=== PATIENT | male | born 1940 | race American Indian/Alaskan Native ===

== ENCOUNTER 2018-07-16 11:45 | Day surgery (SDC) | payer MEDICARE, OTHER ==
[2018-07-16] MEDS ORDERED: NACL 0.9% 1000 ML 1,000 ML IV SCH (14:00)
[2018-07-16] MEDS ORDERED: ANCEF/STERILE WATER 2 GM/20 ML IV NR (14:00)
[2018-07-16 14:30] LABS: Basophils # (Auto) 0.1 K/mm3 (0.0-0.1); Basophils % (Auto) 1.2 % (0.0-1.8); Eosinophils # (Auto) 0.1 K/mm3 (0.0-0.4); Eosinophils % (Auto) 1.4 % (0.0-4.3); Hematocrit 35.2 % (35.5-45.6); Lymphocytes # (Auto) 0.8 K/mm3 (1.2-5.4); Lymphocytes % (Auto) 13.3 % (13.4-35.0); Mean Corpuscular HGB Conc 31 % (32-34); Mean Corpuscular Volume 71 fl (84-94); Monocytes # (Auto) 0.4 K/mm3 (0.0-0.8); Monocytes % (Auto) 7.1 % (0.0-7.3); Platelet Count 244 K/mm3 (140-440); Red Blood Count 4.94 M/mm3 (3.65-5.03); Red Cell Distribution Width 13.7 % (13.2-15.2)
[2018-07-16 14:48] LABS: BUN/Creatinine Ratio 19; Blood Urea Nitrogen 19 mg/dL (9-20); Calcium 8.9 mg/dL (8.4-10.2); Hemolysis Index 12
[2018-07-16] MEDS ORDERED: SUBLIMAZE ONE ×2 (16:00→16:14)
[2018-07-16] MEDS ORDERED: ZOFRAN ONE (16:00)
[2018-07-16] MEDS ORDERED: DIPRIVAN 10 MG/ML IV ONE (16:00)
[2018-07-16] MEDS ORDERED: XYLOCAINE MPF 2% ONE (16:00)
[2018-07-16] MEDS ORDERED: WATER FOR IRRIG STERILE IR ONE ×2 (16:15→16:49)
--- NOTE | 2018-07-16 16:34 | Short Stay Summary ---
Short Stay Documentation Date of service: 07/16/18 - History H&P: obtained from office - Allergies and Medications Current Medications: Allergies levofloxacin [From Levaquin] Allergy (Verified 07/15/18 15:00) Vomiting sulfamethoxazole [From Bactrim] Adverse Reaction (Verified 07/16/18 13:44) Unknown PT STATES HIS PHARMACIST TOLD HIM NOT TO TAKE BACTRIM THAT IT COULD INTERACT WITH ONE OF HIS HEART/BP MEDS trimethoprim [From Bactrim] Adverse Reaction (Verified 07/16/18 13:43) Unknown Home Medications Medication Instructions Recorded Confirmed Last Taken Type Acetaminophen [Tylenol Extra 500 mg PO PRN PRN 07/15/18 07/15/18 Unknown History Strength] Alfuzosin HCl [Alfuzosin HCl ER] 10 mg PO DAILY 07/15/18 07/15/18 07/15/18 History Amlodipine Bes/Olmesartan Med 1 each PO DAILY 07/15/18 07/15/18 07/16/18 08:30 History [Amlodipine-Olmesartan 10-40 mg] Cimetidine [Tagamet Hb] 200 mg PO PRN PRN 07/15/18 07/15/18 07/15/18 History Finasteride [Proscar] 5 mg PO DAILY 07/15/18 07/15/18 07/16/18 08:30 History Metoprolol [Lopressor] 25 mg PO DAILY 07/15/18 07/15/18 07/16/18 08:30 History Tolterodine (Nf) [Detrol LA] 4 mg PO QDAY 07/15/18 07/15/18 07/15/18 History hydroCHLOROthiazide [HCTZ] 25 mg PO QDAY 07/15/18 07/15/18 07/15/18 History traMADol [Ultram] 50 mg PO Q4HR PRN 07/15/18 07/15/18 07/15/18 History Active Medications Cefazolin Sodium (Ancef/Sterile Water 2 Gm/20 Ml) 2 gm IV PREOP NR Stop: 07/16/18 23:59 Sodium Chloride (Nacl 0.9% 1000 Ml) 1,000 mls @ 42 mls/hr IV DIRECT CAIN Last Admin: 07/16/18 14:10 Dose: 42 mls/hr Documented by: - Brief post op/procedure progress note Date of procedure: 07/16/18 Pre-op diagnosis: bladder tumor Post-op diagnosis: same Procedure: cysto, rt rpg, TURBT - left side wall (mod) Anesthesia: SAURABHA Surgeon: SIMONE VARGAS Estimated blood loss: minimal Pathology: list (bladder tumor) Condition: stable - Hospital course Hospital course: macrobid & norco on chart - Disposition Condition at discharge: Stable Disposition: DC-01 TO HOME OR SELFCARE Short Stay Discharge Plan Follow up with: EMIL SEALS MD [Primary Care Provider] - 7 Days
[2018-07-16] MEDS ORDERED: SORBITOL-MANNITOL IRRIG IR ONE (16:49)
[2018-07-16] MEDS ORDERED: DEMEROL ONE (17:10)
[2018-07-16] MEDS ORDERED: DEMEROL IV PRN (17:11)
[2018-07-16 17:18] VITALS: BP 150/81
--- NOTE | 2018-07-16 18:27 | Operative Report ---
PREOPERATIVE DIAGNOSIS: Bladder tumor. POSTOPERATIVE DIAGNOSES: Bladder tumor. PROCEDURES: Cystoscopy, right retrograde pyelogram, transurethral resection of moderate size left bladder tumor. SURGEON: Primitivo Mendez MD ANESTHESIA: General. ESTIMATED BLOOD LOSS: Minimal. FLUIDS: Crystalloid. COMPLICATIONS: No complications. INDICATIONS: This patient is a 78-year-old gentleman seen in our office for gross hematuria. He has actually been followed for several years for erectile dysfunction and hypogonadism, had an episode of gross hematuria. CT of abdomen and pelvis revealed a bladder mass and some degenerative changes in his spine. Office cystoscopy could see an area of irritation. 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 He presents now for further endoscopic evaluation. DESCRIPTION OF PROCEDURE: The patient was taken to the operative suite, placed in a supine position. After adequate general anesthesia, placed in a dorsal lithotomy position, prepped and draped in a sterile fashion. Pancystourethroscopy was performed with a 22-Samoan Storz cystoscope, no urethral abnormalities. His prostate did display some moderate trilobar obstruction, obvious bladder tumor could be on the left lateral wall also obscuring the left ureteral orifice. Right retrograde pyelogram was obtained with an 8-Samoan Nic catheter and 8 mL of contrast. No filling defects or obstruction. No other tumors or stones were noted. Using a 27-Samoan resectoscope and loop with a cutting and coag on 120 and 60, transurethral resection of the papillary tumor was performed. There was a small stalk, although he also had some trabeculation making it difficult to see the left ureteral orifice. The tumor was removed completely. Gentle cauterization due to the ureteral orifice was not visualized on the left. The Ellik evacuators were used to remove all the chips. Adequate hemostasis achieved. Rectal exam was benign. He was extubated and taken to recovery room. He will go home on [employer] and [employer]. JOB# [id number] [facility]
--- NOTE | 2018-07-17 07:45 | Fluoroscopy Report ---
FLUOROSCOPY RETROGRADE UROGRAPHY: HISTORY: Bladder mass, retention of urine. FINDINGS: Fluoroscopy was provided by radiology during retrograde urography by the urologist. 2 fluoroscopic images were captured. The right retrograde pyelogram was normal. Per the operative notes, the urologist was unable to identify the orifice to the left ureter due to a bladder mass. TURBT it was performed on a moderate sized bladder tumor. Please correlate with the operative notes as needed. IMPRESSION: Normal right retrograde pyelogram. Bladder mass. See above.
== END 2018-07-16 11:46 | disposition home or self-care (01) ==
LOC: OR 11:45
PROVIDERS: ATTEND Urology
DX: C67.9 Malignant neoplasm of bladder, unspecified (principal); N32.89 Other specified disorders of bladder; R31.0 Gross hematuria; I10 Essential (primary) hypertension; K21.9 Gastro-esophageal reflux disease without esophagitis; E11.51 Type 2 diabetes mellitus with diabetic peripheral angiopathy without gangrene; N40.0 Benign prostatic hyperplasia without lower urinary tract symptoms; D64.9 Anemia, unspecified; G47.33 Obstructive sleep apnea (adult) (pediatric); Z79.899 Other long term (current) drug therapy; Z79.01 Long term (current) use of anticoagulants; Z88.2 Allergy status to sulfonamides; Z88.1 Allergy status to other antibiotic agents; Z95.0 Presence of cardiac pacemaker; Z87.891 Personal history of nicotine dependence; Z98.890 Other specified postprocedural states
CPT/HCPCS: 36415; 52240; 74420; 80048; 82962; 85025; 88305; A4217; C1758; J0690; J2175; J2405; J2704; J3010; J7030; Q9967

== ENCOUNTER 2019-07-27 05:46 | Day surgery (SDC) | payer MEDICARE, OTHER ==
[2019-07-27] MEDS ORDERED: ceFAZolin/STERILE WATER 2 GM/20 ML SYRINGE IV NR (07:00)
[2019-07-27] MEDS ORDERED: BACTERIOSTATIC SODIUM CHLORIDE 0.9% 30 ML VIAL INFILTRATI ONE (07:03)
--- NOTE | 2019-07-27 07:27 | Anesthesia Day of Surgery ---
Anesthesia Day of Surgery - Day of Surgery Patient Examined: Yes Patient H&P Reviewed: Yes Patient is NPO: Yes Beta Blockers: Yes
[2019-07-27] MEDS ORDERED: ONDANSETRON 4 MG/2 ML INJ IV PRN (07:28)
[2019-07-27] MEDS ORDERED: fentaNYL 100 MCG/2 ML INJ IV PRN (07:28)
--- NOTE | 2019-07-27 07:34 | Anesthesia Consultation ---
Anesthesia Consult and Med Hx Date of service: 07/27/19 - Airway Anesthetic Teeth Evaluation: Partials (upper and lower) ROM Head & Neck: Adequate Mental/Hyoid Distance: Adequate Mallampati Class: Class III Intubation Access Assessment: Possibly Difficult - Pre-Operative Health Status ASA Pre-Surgery Classification: ASA3 Proposed Anesthetic Plan: General - Pulmonary Hx Smoking: Yes (STOPEED X 30 YRS) Hx Sleep Apnea: Yes (DX SLEEP APNEA WITH CPAP USE.) - Cardiovascular System Hx Hypertension: Yes (X 20 YRS) Hx Pacemaker: Yes (2012, paced at the rate of 60 ) Hx Peripheral Vascular Disease: Yes (LEGS) - Central Nervous System Hx Back Pain: Yes - Endocrine Hx Non-Insulin Dependent Diabetes: Yes - Hematic Hx Anemia: Yes Hx Sickle Cell Disease: No (SC TRAIT ONLY) - Other Systems Hx Cancer: Yes (bladder CA 2017, followed by chemo)
[2019-07-27] MEDS ORDERED: LACTATED RINGERS 1,000 ML IV SCH (08:00)
[2019-07-27] MEDS ORDERED: LIDOCAINE MPF (2%) 20 MG/1 ML VIAL 5 ML ONE (08:08)
[2019-07-27] MEDS ORDERED: PROPOFOL 200 MG/20 ML VIAL IV ONE ×2 (08:09→08:39)
[2019-07-27 08:12] LABS: Hematocrit 36.4 % (35.5-45.6); Hemoglobin 11.5 gm/dl (11.8-15.2); Mean Corpuscular HGB Conc 32 % (32-34); Mean Corpuscular Volume 72 fl (84-94); Platelet Count 233 K/mm3 (140-440); Red Blood Count 5.03 M/mm3 (3.65-5.03); Red Cell Distribution Width 13.5 % (13.2-15.2)
[2019-07-27 08:40] LABS: BUN/Creatinine Ratio 20; Blood Urea Nitrogen 20 mg/dL (9-20); Calcium 9.1 mg/dL (8.4-10.2); Hemolysis Index 21
[2019-07-27] MEDS ORDERED: ePHEDrine SULFATE 50 MG/1 ML INJ ONE (09:00)
[2019-07-27] MEDS ORDERED: PHENYLEPHRINE/NS 1,000 MCG/10 ML SYRINGE (OR USE) IV ONE (09:11)
[2019-07-27] MEDS ORDERED: MANNITOL/SORBITOL SOLUTION 3,000 ML IRRIG.SOLN IR ONE (09:30)
[2019-07-27] MEDS ORDERED: SODIUM CHLORIDE 0.9% IRRIG SOLN 3000 ML IR ONE (09:30)
[2019-07-27] MEDS ORDERED: WATER FOR IRRIG STERILE 2000 ML IR ONE (09:30)
[2019-07-27] MEDS ORDERED: HYDROcodone/ACETAMINOPHEN 5-325 MG TAB PO PRN (10:23)
--- NOTE | 2019-07-27 10:33 | Fluoroscopy Report ---
FLUOROSCOPY RETROGRADE UROGRAPHY HISTORY: Bladder tumors FINDINGS: 0.9 minutes of fluoroscopy time was provided by radiology during retrograde urography by dana enrique urologist. 6 fluoroscopic images are submitted. There is normal filling of the renal collecting sys tems bilaterally. No stone or abnormal dilatation is appreciated. Please correlate with the procedura l report as needed. Signer Name: Nile Yeh Jr, MD Signed: 07/27/2019 10:28 AM Workstation Name: [id number]
--- NOTE | 2019-07-27 11:41 | Operative Report ---
PREOPERATIVE DIAGNOSIS: Recurrent bladder tumor x2. POSTOPERATIVE DIAGNOSIS: Recurrent bladder tumor x2 (multiple bladder tumors, approximately 6). PROCEDURES: Cystoscopy, bilateral retrograde pyelograms, transurethral resection of multiple bladder tumors. SURGEON: Primitivo Mendez MD ANESTHESIA: General. ESTIMATED BLOOD LOSS: Minimal. FLUIDS: Crystalloid. COMPLICATIONS: No complications. INDICATIONS: This patient is a 79-year-old gentleman known to my service with a history of bladder tumors. 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 He underwent gemcitabine, intravesical instillations for 6 weeks. Surveillance cystoscopy revealed multiple tumors on 06/11/2019. He presents now for removal. DESCRIPTION OF PROCEDURE: The patient was taken to the operative suite, placed in a supine position. After adequate general anesthesia, placed in a dorsal lithotomy position, prepped and draped in a sterile fashion. Pancystourethroscopy was performed with a 22-Prydeinig Storz cystoscope, no urethral abnormalities. His prostate did display some mild trilobar obstruction. Both ureteral orifices in normal position. The patient was noted to have multiple papillary tumors on the posterior and on the right side. Bilateral retrograde pyelograms were obtained with an 8-Prydeinig [place] catheter and 8 mL of contrast. No filling defects or obstruction. Next, using a 24-Prydeinig resectoscope and loop with cutting and coag on 160 and 60 transurethral resection of the bladder tumors were performed. They were taken out systematically. There was an equipment failure. It took a little while to switch out the scopes and camera. I was able to complete the procedure, remove the tumors; however, I had to leave the catheter due to two of these tumors required deep resection on the right side. A 22-Prydeinig 3-way catheter would plug the side port. Rectal exam was benign. He was extubated and taken to recovery room. He will go home on Macrobid, Ultram and Hagerman. I suspect he will need repeat intravesical therapy. This was discussed with the family. JOB# [id number] [facility]
--- NOTE | 2019-07-27 13:03 | Post Anesthesia Evaluation ---
- Post Anesthesia Evaluation Patient Participated: Yes Airway Patent: Yes Stable Respiratory Function: Yes Nausea/Vomiting: No Temp > 96.8F: Yes Pain Manageable: Yes Adequeate Hydration: Yes Anesthesia Complications: No Block Receding Appropriately: Not Applicable Patient on Ventilator: No
[2019-07-27 13:39] VITALS: BP 162/80
== END 2019-07-27 05:47 | disposition home or self-care (01) ==
LOC: OR 05:46
PROVIDERS: ATTEND Urology
DX: C67.4 Malignant neoplasm of posterior wall of bladder (principal); I10 Essential (primary) hypertension; G47.30 Sleep apnea, unspecified; E11.39 Type 2 diabetes mellitus with other diabetic ophthalmic complication; E11.51 Type 2 diabetes mellitus with diabetic peripheral angiopathy without gangrene; H40.9 Unspecified glaucoma; I73.9 Peripheral vascular disease, unspecified; K21.9 Gastro-esophageal reflux disease without esophagitis; Z98.890 Other specified postprocedural states; Z88.8 Allergy status to other drugs, medicaments and biological substances; Z87.891 Personal history of nicotine dependence; Z79.899 Other long term (current) drug therapy; Z95.0 Presence of cardiac pacemaker; Z86.2 Personal history of diseases of the blood and blood-forming organs and certain disorders involving the immune mechanism
CPT/HCPCS: 36415; 52235; 74420; 80048; 82962; 85027; 88307; A4217; J0690; J2370; J2704; J3010; J7120; Q9967; 88305

== ENCOUNTER 2021-12-06 06:07 | Day surgery (SDC) | payer MEDICARE, OTHER ==
[2021-12-04 09:59] LABS: Hematocrit 34.5 % (35.5-45.6); Hemoglobin 10.6 gm/dl (11.8-15.2); Mean Corpuscular HGB Conc 31 % (32-34); Mean Corpuscular Volume 72 fl (84-94); Platelet Count 240 K/mm3 (140-440); Red Blood Count 4.79 M/mm3 (3.65-5.03); Red Cell Distribution Width 13.2 % (13.2-15.2)
[2021-12-04 10:06] LABS: Alanine Aminotransferase 12 units/L (7-56); Albumin 3.9 g/dL (3.9-5); BUN/Creatinine Ratio 18; Blood Urea Nitrogen 22 mg/dL (9-20); Calcium 9.3 mg/dL (8.4-10.2); Hemolysis Index 0
--- NOTE | 2021-12-04 10:41 | Anesthesia Consultation ---
Anesthesia Consult and Med Hx Date of service: 12/06/21 - Airway Anesthetic Teeth Evaluation: Partials (Has five teeth) ROM Head & Neck: Adequate Mental/Hyoid Distance: Adequate Mallampati Class: Class II Intubation Access Assessment: Good - Pre-Operative Health Status ASA Pre-Surgery Classification: ASA3 Proposed Anesthetic Plan: General - Pulmonary Hx Smoking: Yes (quit 30yrs ago) Hx Respiratory Symptoms: No SOB: Yes (chronic JEFFERY ) Hx Sleep Apnea: Yes (+ CPAP) - Cardiovascular System Hx Hypertension: Yes Hx Heart Attack/AMI: No (-NST 2018) Hx Percutaneous Transluminal Coronary Angioplasty (PTCA): No Hx Cardia Arrhythmia: Yes (sick sinus syndrome) Hx Pacemaker: Yes (LAST DEVICE CHECK 09/05/21- NORMAL) Hx Internal Defibrillator: No Hx Peripheral Vascular Disease: Yes (LEGS) - Central Nervous System Hx Neuromuscular Disorder: No (Gout) CVA: No Hx Back Pain: Yes Hx Psychiatric Problems: Yes (Anxiety/Depression) - Gastrointestinal Hx Ulcer: Yes (Had GI bleed 2019) Hx Gastroesophageal Reflux Disease: Yes (well controlled) - Endocrine Hx Renal Disease: No Hx Liver Disease: No Hx Non-Insulin Dependent Diabetes: Yes (diet controlled) Hx Thyroid Disease: No - Hematic Hx Anemia: Yes Hx Sickle Cell Disease: No (SC TRAIT ONLY) - Other Systems Hx Alcohol Use: No Hx Substance Use: No Hx Cancer: Yes (bladder ca) Hx Obesity: Yes (BMI 31) - Additional Comments Anesthesia Medical History Comments: Cardiac records reviewed
[~2021-12-06 06:07] MED LIST: LACTATED RINGERS 1,000 ML IV SCH; SODIUM CHLORIDE 0.9% IRRIG SOLN 2000 ML IR ONE; WATER FOR IRRIG STERILE 1,500 ML BOTTLE IR ONE
[2021-12-06] MEDS ORDERED: HYDROmorphone 1 MG/1 ML INJ ONE (07:23)
[2021-12-06] MEDS ORDERED: propofoL 200 MG/20 ML VIAL IV ONE (07:24)
[2021-12-06] MEDS ORDERED: LIDOCAINE MPF (2%) 20 MG/1 ML VIAL 5 ML ONE (07:24)
[2021-12-06] MEDS ORDERED: HYDROmorphone 1 MG/1 ML INJ IV PRN ×2 (07:46)
[2021-12-06] MEDS ORDERED: ONDANSETRON 4 MG/2 ML INJ IV PRN (07:46)
--- NOTE | 2021-12-06 07:46 | Anesthesia Day of Surgery ---
Anesthesia Day of Surgery - Day of Surgery Patient Examined: Yes Patient H&P Reviewed: Yes Patient is NPO: Yes
[2021-12-06] MEDS ORDERED: ceFAZolin/Water 2 GM/20 ML 2 GM/20 ML SYRINGE IV ONE (07:52)
[2021-12-06] MEDS ORDERED: WATER FOR IRRIG STERILE 1,500 ML BOTTLE IR ONE (08:36)
[2021-12-06] MEDS ORDERED: SODIUM CHLORIDE 0.9% IRRIG SOLN 2000 ML IR ONE ×3 (08:36)
[2021-12-06] MEDS ORDERED: ONDANSETRON 4 MG/2 ML INJ ONE (09:36)
[2021-12-06] MEDS ORDERED: LACTATED RINGERS 1,000 ML ONE (09:38)
--- NOTE | 2021-12-06 11:37 | Operative Report ---
DATE OF SURGERY: 12/06/2021 PREOPERATIVE DIAGNOSES: 1. 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 2. Recurrent bladder tumors. POSTOPERATIVE DIAGNOSES: 1. 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 2. Recurrent bladder tumors. OPERATIVE PROCEDURE: TURBT, large, greater than 5 cm. ATTENDING: Mio Jesus MD ASSISTANTS: None. ANESTHESIA: General. ESTIMATED BLOOD LOSS: 20 mL DRAINS: A 22-Bulgarian 3-way Stover catheter. SPECIMENS: Urine cytology. COMPLICATIONS: None. INDICATIONS FOR PROCEDURE: The patient is an 81-year-old man with a long history of BCG refractory, recurrent high-grade non-muscle invasive bladder cancer, currently on immunotherapy, who presents today for a cystoscopy and transurethral resection of bladder tumor. DESCRIPTION OF PROCEDURE: After induction of suitable anesthesia and proper positioning and preparation in the dorsal lithotomy position, a resectoscope was used to enter the bladder under direct visualization. The patient does have an obstructive prostate. Upon entering the bladder, it was clear the patient had recurrent multiple tumors specifically on the posterior wall, dome, and anterior wall. Tumor volume was well over 5 cm. Using the button electrocautery, I then spent approximately an hour and a half resecting all visible tumor that was practical. Hemostasis was achieved during the procedure. Using the button electrocautery, I used a [id number] approach to resect the tumor. It is quite possible the patient will need a repeat TURBT to be totally tumor free. I would say that we at least resected greater than 50% of all visible tumor. It should be noted that the tumor is hard to access in the posterior wall and anterior wall and the dome, but with manual pressure, we were able to have a good resection. At the conclusion of the procedure, the resection beds were hemostatic. The resectoscope was removed and a Stover catheter was placed and attached to gravity drainage. The patient was then awakened from anesthesia and transferred to recovery room in stable condition. The patient tolerated the procedure well. He will return approximately in 5 days for catheter removal. TID: [id number] RECEIPT: [id number] [facility]
[2021-12-06 12:20] VITALS: BP 131/67
== END 2021-12-06 11:00 | disposition home or self-care (01) ==
LOC: OR 06:07
PROVIDERS: ATTEND Urology
DX: C67.3 Malignant neoplasm of anterior wall of bladder (principal); C67.2 Malignant neoplasm of lateral wall of bladder; C67.1 Malignant neoplasm of dome of bladder; Z20.822 Contact with and (suspected) exposure to COVID-19; H40.9 Unspecified glaucoma; I10 Essential (primary) hypertension; G47.30 Sleep apnea, unspecified; K21.9 Gastro-esophageal reflux disease without esophagitis; E66.9 Obesity, unspecified; E11.9 Type 2 diabetes mellitus without complications; F32.9 Major depressive disorder, single episode, unspecified; F41.9 Anxiety disorder, unspecified; D64.9 Anemia, unspecified; Z88.8 Allergy status to other drugs, medicaments and biological substances; Z79.899 Other long term (current) drug therapy; Z87.891 Personal history of nicotine dependence; Z98.49 Cataract extraction status, unspecified eye; Z95.0 Presence of cardiac pacemaker; Z87.442 Personal history of urinary calculi; Z98.890 Other specified postprocedural states
CPT/HCPCS: 36415; 52235; 80053; 82962; 85027; 88112; J0690; J1170; J2405; J2704; J7120; U0003